=== PATIENT | male | born 1985 | race African-American/Black ===

== ENCOUNTER 2019-07-09 09:11 | Emergency (ER) | payer SELFPAY ==
[2019-07-09 09:27] VITALS: TEMP 98.3; BMI 33.3
--- NOTE | 2019-07-09 09:54 | PDOC ---
History of Present Illness - General Chief Complaint: Rectal Bleed Stated Complaint: BLEEDING Time Seen by Provider: 07/09/19 09:53 History Source: Patient Exam Limitations: No Limitations - History of Present Illness Initial Comments: Pt is a 34 yo M, with no known PMH (pt does not have PCP f/u), who is presenting from home for complaints of loose stool x1 week, and blood in BM x2 days. Pt states the blood has been mixed into the stool, and has felt light- headedness and L-sided chest pain intermittently since last night. Pt states the chest pain lasts ~1 hour, and is worse when lying down. Pt has been tolerating PO food and fluid intake without difficulty. Pt states he frequently eats deli sandwiches, but cannot identify a possible infectious cause, and denies denies any rectal intercourse. Pt denies fevers/chills, headache, vision changes, syncope, palpitations, SOB, nausea/vomiting, abdominal pain, urinary symptoms, or leg swelling. Allergies: NKDA PCP: None Social: Pt smokes ~3 cigarettes/day, 3-4 "mixed drinks with liquor" per day. Pt denies any recent travel or sick contacts. Surgical: no relevant history. Family: Type 1 DM in family. No early PA or CVA. 07/09/19 10:20 07/09/19 10:24 Past History - Travel Traveled outside of the country in the last 30 days: No Close contact w/someone who was outside of country & ill: No - Past Medical History Allergies/Adverse Reactions: Allergies Allergy/AdvReac Type Severity Reaction Status Date / Time No Known Allergies Allergy Verified 07/09/19 09:27 Home Medications: Ambulatory Orders Hydrochlorothiazide [Hctz -] 12.5 mg PO DAILY #30 cap 07/09/19 COPD: No - Immunization History Immunization Up to Date: No - Psycho Social/Smoking Cessation Hx Smoking History: Current every day smoker Have you smoked in the past 12 months: Yes Information on smoking cessation initiated: No Hx Alcohol Use: No Drug/Substance Use Hx: No Review of Systems - Review of Systems Able to Perform ROS?: Yes Is the patient limited Czech proficient: No Constitutional: Yes: Weight Stable. No: Chills, Diaphoresis, Fever, Loss of Appetite, Malaise, Weakness HEENTM: No: Recent change in vision, Nose Congestion, Throat Pain, Throat Swelling, Difficulty Swallowing Respiratory: No: Cough, Orthopnea, Shortness of Breath Cardiac (ROS): Yes: See HPI, Chest Pain, Lightheadedness. No: Edema, Irregular Heart Rate, Palpitations, Syncope, Chest Tightness ABD/GI: Yes: See HPI, Blood Streaked Bowels, Diarrhea, Rectal Bleeding. No: Constipated, Nausea, Poor Appetite, Poor Fluid Intake, Vomiting, Abdominal cramping, Tarry Stools : No: Burning, Dysuria, Frequency, Flank Pain, Pain, Urgency Musculoskeletal: No: Back Pain, Joint Pain, Muscle Pain, Muscle Weakness Integumentary: No: Rash Neurological: No: Headache, Numbness, Weakness, Dizziness Psychiatric: No: Sleep Pattern Change, Change in Appetite Endocrine: No: Increased Urine, Change in Weight Hematologic/Lymphatic: No: Anemia, Blood Clots, Easy Bleeding, Easy Bruising All Other Systems: Reviewed and Negative *Physical Exam - Vital Signs Last Vital Signs Temp Pulse Resp BP Pulse Ox 98.3 F 72 18 199/106 H 99 07/09/19 09:24 07/09/19 09:24 07/09/19 09:24 07/09/19 09:24 07/09/19 09:24 - Physical Exam Comments: HTN (199/106, unknown baseline), pt afebrile. Pt in NAD, lying in bed comfortably. Obese body habitus. Pt alert and oriented x3. planner generally intact, muscular strength and sensation intact. No midline spinal tenderness, step-offs, or crepitus. Head normocephalic, atraumatic. Eyes PERRLA, EOMI. Oropharynx without erythema or exudates, no LAD b/l. No nasal congestion, hearing intact. Clear heart sounds, S1/S2, no JVD, b/l pedal edema, or heart murmur. Clear lung sounds, no respiratory distress, wheezes, crackles, or accessory muscle use. No abdominal or CVA tenderness to palpation, no rebound, no guarding. Abdomen soft, non-distended, and with normoactive bowel sounds. Rectal exam with no freddy blood, no external or internal hemorrhoids palpated or observed. No evidence of trauma. Skin without jaundice or rash. 07/09/19 10:25 07/09/19 10:31 Vital Signs - Vital Signs #1 Blood Pressure: 193/97 MAP: 129 BP Location: Right Arm Blood Pressure Position: Sitting #2 Blood Pressure: 181/100 MAP: 127 BP Location: Right Arm Blood Pressure Position: Supine ED Treatment Course - LABORATORY CBC & Chemistry Diagram: 07/09/19 10:14 07/09/19 10:14 Medical Decision Making - Medical Decision Making Pt was seen at bedside, also will be seen by attending Dr. Goldman. Pt presenting with complaints of loose stool, rectal bleeding/bloody BMs, and chest pain. Pt HTN with no PCP care. Will evaluate for ACS vs anemia vs infection. Provided IVF and 12.5 mg HCTZ for improvement of hydration and BP control. Will continue to reassess pt and monitor for symptomatic improvement. ECG: Sinus bradycardia, incomplete RBBB. TWI in III, with no significant ST segment changes. No prior ECG for comparison. Labs/stool for occult blood sent. 07/09/19 10:31 CBC shows anemia, not at level requiring transfusion. No prior for comparison. Stool for occult negative. Coags WNL. 07/09/19 10:48 07/09/19 10:53 CMP: BUN/Cr 31/10.4 -- provided IVF (unknown baseline of Cr) Trop <.02 Pt states chest discomfort and light-headedness improved after IVF and HCTZ. BP improving; will not drop BP more than 20% systolic, as pt may be high at baseline and we do not want to induce ischemia. Sent HCTZ to pts pharmacy. Scheduled PCP appointment for f/u. 07/09/19 11:00 BP improved to 181/100. Pt with no further bleeding in ED, pt stable for d/c with PCP establishment and f/u. Strict return precautions provided with pt understanding. 07/09/19 11:08 Discharge - Discharge Information Problems reviewed: Yes Clinical Impression/Diagnosis: Rectal bleeding Hypertension Qualifiers: Hypertension type: essential hypertension Qualified Code(s): I10 - Essential ( primary) hypertension Condition: Improved Disposition: HOME - Admission No - Additional Discharge Information Prescriptions: Hydrochlorothiazide [Hctz -] 12.5 mg PO DAILY #30 cap - Follow up/Referral Referrals: [facility] [place] [Provider Group] - Patient Discharge Instructions Patient Printed Discharge Instructions: DI for Rectal Bleeding Additional Instructions: You were seen in the ER today for rectal bleeding and high blood pressure. The results of your labs and imaging today were normal. Please follow-up with your primary care doctor within 1-2 days to discuss your visit and make sure your symptoms have improved. Please return to the ER if you have any worsening bleeding, development of abdominal pain, fevers or chills, loss of consciousness , inability to tolerate food or fluids, or any other concerns. I have sent medications for your blood pressure to your pharmacy. Please take these medications as prescribed. - Post Discharge Activity
[2019-07-09] MEDS ORDERED: SODIUM CHLORIDE 1,000 ML IV STA (10:13)
[2019-07-09] MEDS ORDERED: HYDROCHLOROTHIAZIDE 12.5 MG CAPSULE (FP) PO STA (10:17)
--- NOTE | 2019-07-09 10:17 | PDOC ---
Attending Attestation - Resident Resident Name: Bethany Simon - ED Attending Attestation I have performed the following: I have examined & evaluated the patient, The case was reviewed & discussed with the resident, I agree w/resident's findings & plan, Exceptions are as noted - HPI HPI: 07/09/19 11:40 34 years old with no significant past medical history presents to the emergency department with blood in stool for 2 days. Mild lightheadedness mild chest pain denies syncope palpitations shortness of breath patient is an active tobacco smoker drinks daily no history of withdrawal positive family history of diabetes symptoms are mild to moderate persistent concent no exacerbating or relieving factors. ROS: A complete review of 10 out of 10 review of systems is taken and is negative apart from what is previously mentioned below and in the HPI. - Physicial Exam PE: 07/09/19 11:41 Vitals: Triage Vital signs reviewed General Appearance: no acute distress, well nourished well developed, Head: Atraumatic, Eyes: Pupils equal reactive round, extraocular movement intact Chest Wall: Nontender Cardiac: Regular rate and rhythym, no murmurs, no rubs, no gallops, Lungs: Clear to auscultation bilateral, good air movement bilaterally, Abdomen: Soft, non distended, normal bowel sounds, non tender to palpation Extremities: Full range of motion to all extremities, no cyanosis, clubbing, or edema Skin: Warm and dry, no rashes or lesions, no rash, no petechiae Psych: normal mood, normal affect - Medical Decision Making 07/09/19 11:42 Well-appearing no apparent distress with 2 day history of blood spotted in stool Patient noted to be retention but does not follow with . Patient counseled regarding alcohol and smoking cessation. We'll start patient on hydrochlorothiazide. He will follow-up in our clinic on Friday for additional blood pressure monitoring and GI follow-up if necessary Findings, the need for follow-up and strict return instructions discussed patient. Heart Score/ECG Review - ECG Impressions Comment:: 07/09/19 11:41 EKG performed at 1016 demonstrates sinus rhythm [address] elevations isolated T-wave inversion in lead 3 Interpreted by me.
[2019-07-09] MEDS ORDERED: HYDROCHLOROTHIAZIDE 25 MG TABLET (FP) ONE (10:22)
[2019-07-09 10:23] LABS: BASO % 1.1 % (0-2.0); EOS % 2.4 % (0-4.5); HEMATOCRIT 33.6 % (35.4-49); HEMOGLOBIN 11.3 GM/dL (11.7-16.9); MCH 28.7 pg (25.7-33.7); MCHC 33.7 g/dl (32.0-35.9); MEAN CELL VOLUME 85.1 fl (80-96); MEAN PLT VOLUME 7.6 fl (7.5-11.1); MONO % 7.7 % (3.8-10.2); NEUT % 52.8 % (42.8-82.8); PLATELET COUNT 230 K/MM3 (134-434); RBC 3.94 M/mm3 (4.00-5.60); RDW 14.5 % (11.9-15.9); WHITE BLOOD COUNT 4.7 K/mm3 (4.0-10.0)
[2019-07-09 10:26] VITALS: PULSE 66
[2019-07-09 10:41] LABS: INR 0.97 (0.83-1.09); PROTHROMBIN TIME (PATIENT) 11.5 SEC (9.7-13.0)
[2019-07-09 10:55] LABS: ALBUMIN 3.8 g/dl (3.4-5.0); ALK PHOS 51 U/L (45-117); ANION GAP 7 MMOL/L (8-16); BILIRUBIN,TOTAL 0.8 mg/dL (0.2-1); BLOOD UREA NITROGEN 19.4 mg/dL (7-18); CALCIUM 8.5 mg/dL (8.5-10.1); CHLORIDE 108 mmol/L (98-107); CO2 25 mmol/L (21-32); CREATININE 1.4 mg/dL (0.55-1.3); GLUCOSE,RANDOM 92 mg/dL (74-106); POTASSIUM 3.5 mmol/L (3.5-5.1); SGOT/AST 25 U/L (15-37); SGPT/ALT 26 U/L (13-61); SODIUM 140 mmol/L (136-145); TOT PROT 7.4 g/dl (6.4-8.2)
[2019-07-09 10:57] VITALS: BP 193/97
--- NOTE | 2019-07-09 14:03 | EKG ---
Test Reason : Blood Pressure : / mmHG Vent. Rate : 056 BPM Atrial Rate : 056 BPM P-R Int : 180 ms QRS Dur : 114 ms QT Int : 476 ms P-R-T Axes : 016 -12 -18 degrees QTc Int : 459 ms SINUS BRADYCARDIA INCOMPLETE RIGHT BUNDLE BRANCH BLOCK NO PREVIOUS ECGS AVAILABLE Confirmed by ALLY HERNÁNDEZ MD ([id number]) on 07/09/2019 2:03:21 PM Referred By: Confirmed By:ALLY HERNÁNDEZ MD
== END 2019-07-09 11:33 | disposition home or self-care (01) ==
LOC: JER 09:11
PROC: 3E0337Z Introduction of Electrolytic and Water Balance Substance into Peripheral Vein, Percutaneous Approach (ICD-10-PCS; principal; 2019-07-09)
DX: I10 Essential (primary) hypertension (principal); K62.5 Hemorrhage of anus and rectum; F17.210 Nicotine dependence, cigarettes, uncomplicated
CPT/HCPCS: 36415; 80053; 82272; 82550; 82553; 84484; 85025; 85610; 86850; 86900; 86901; 93005; 93010; 99284-25; J7030